=== PATIENT | male | born 2000 | race Caucasian/White ===

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

== ENCOUNTER 2020-02-24 12:36 | Emergency (ER) | payer BC, MEDICAID ==
[2020-02-24 13:10] VITALS: BP 80/34; PULSE 49
--- NOTE | 2020-02-24 13:34 | CR ---
Fingers Thumb Rt F5 CLINICAL HISTORY: Trauma FINDINGS: There is soft tissue disruption at the distal thumb. No underlying fracture is identified and there is no foreign body Impression: Soft tissue laceration No fracture
[2020-02-24] MEDS ORDERED: Bacitracin Oint 1 GM U/D Packet TOP ONE (13:41)
--- NOTE | 2020-02-24 13:43 | EDM.PDOC ---
ED HPI GENERAL MEDICAL PROBLEM - General Chief Complaint: Upper Extremity Injury/Pain Stated Complaint: smashed thumb on r hand Time Seen by Provider: 02/24/20 13:38 Source of Information: Reports: Patient, Family, RN Notes Reviewed History Limitations: Reports: No Limitations - History of Present Illness INITIAL COMMENTS - FREE TEXT/NARRATIVE: 19-year-old gentleman presents emergency department today after smashing his right thumb with a hammer he has no functional complaints end up getting just the distal aspect where the nail is - Related Data Allergies Allergy/AdvReac Type Severity Reaction Status Date / Time amoxicillin Allergy Unknown Rash Verified 09/27/15 06:04 Penicillins Allergy Unknown Rash Verified 09/27/15 06:04 Sulfa (Sulfonamide Allergy Rash Verified 09/27/15 07:58 Antibiotics) vancomycin Allergy Rash Verified 08/17/17 04:01 Home Meds: Home Meds Albuterol [Proventil Neb Soln] 1 vial INH QID 02/18/14 [History] Azithromycin [Zithromax] 1 tab PO .MWF 02/18/14 [History] Budesonide [Pulmicort Flexhaler] 2 puff INH BID 02/18/14 [History] Dornase Magdi [Pulmozyme] 2.5 mg INH BID 02/18/14 [History] Pedi Multivit #64/Vit D3/Vit K [Choiceful Vitamins Chew Tablet] 2 tab PO DAILY 02/18/14 [History] Sodium Chloride for Inhalation [Hyper-Moilna] 4 ml PO BID 02/18/14 [History] Cholecalciferol (Vitamin D3) [Vitamin D3] 1,000 unit PO TID 09/23/15 [History] Lumacaftor/Ivacaftor [Orkambi 200 mg-125 mg Tablet] 1 tab PO BID 09/23/15 [History] polyethylene glycoL 3350 [Miralax] 1 tsp PO DAILY PRN 09/23/15 [History] Amylase/Lipase/Protease [Creon DR 24,000 Unit] 5 - 6 cap PO TID 09/27/15 [History] Ipratropium [Atrovent] 0.5 mg INH TID 09/27/15 [History] Past Medical History HEENT History: Reports: Cataract, Impaired Vision, Sinusitis Respiratory History: Reports: Asthma, Cystic Fibrosis, SOB Gastrointestinal History: Reports: Chronic Constipation, GERD - Past Surgical History HEENT Surgical History: Reports: Adenoidectomy, Cataract Surgery, Eye Surgery, Naso-Sinus Surgery, Polypectomy, Retinal, Tonsillectomy, Other (See Below) Other HEENT Surgeries/Procedures: left eye fishhook injury, nasal polyps removed Respiratory Surgical History: Reports: None GI Surgical History: Reports: Hernia, Inguinal Social & Family History - Tobacco Use Tobacco Use Status *Q: Never Tobacco User - Caffeine Use Caffeine Use: Reports: Soda - Recreational Drug Use Recreational Drug Use: No Review of Systems - Review of Systems Review Of Systems: See Below Musculoskeletal: Reports: Hand Pain Skin: Reports: Wound Neurological: Reports: No Symptoms ED EXAM, GENERAL - Physical Exam Exam: See Below Free Text/Narrative:: Examination of the thumb right hand the nail still is intact a portion of it has been pulled away from the cuticle and there is a portion of subungual tissue which has protruded out underneath the nail there is a large subungual hematoma present, radial pulses +2 full range of motion of all digits Exam Limited By: No Limitations General Appearance: Alert, WD/WN, No Apparent Distress ED TRAUMA EXTREMITY PROCEDURES - Laceration/Wound Repair Right Digit - 1st (Thumb) Lac/Wound Length In cm: 1 Appearance: Subcutaneous, Irregular Distal NVT: Neuro & Vascular Intact, No Tendon Injury Anesthetic Type: Digital Local Anesthesia - Lidocaine (Xylocaine): 1% with EPI Local Anesthetic Volume: 2cc Skin Prep: Saline Saline Irrigation (cc's): 150 Exploration/Debridement/Repair: Wound Explored, In a Bloodless Field, Explored to Base Closed With: Sutures Suture Size: 4-0 # of Sutures: 3 Suture Type: Prolene Drain Placement: No Tetanus Status Addressed: Yes Course - Vital Signs Last Recorded V/S: Last Vital Signs Temp 97.7 F 02/24/20 13:09 Pulse 49 L 02/24/20 13:09 Resp 16 02/24/20 13:09 BP 80/34 L 02/24/20 13:09 Pulse Ox 97 02/24/20 13:09 - Orders/Labs/Meds Meds: Medications Discontinued Medications Generic Name Dose Route Start Last Admin Trade Name Freq PRN Reason Stop Dose Admin Bacitracin 1 dose 02/24/20 13:41 02/24/20 13:55 Bacitracin Oint 1 Gm TOP 02/24/20 13:42 1 dose ONETIME ONE Administration Lidocaine HCl 5 ml 02/24/20 13:41 02/24/20 13:56 Xylocaine-Mpf 1% INJECT 02/24/20 13:42 5 ml ONETIME ONE Administration Departure - Departure Time of Disposition: 14:57 Disposition: Home, Self-Care 01 Condition: Fair Clinical Impression: Laceration of thumb, right Qualifiers: Encounter type: initial encounter Damage to nail status: with damage Foreign body presence: without foreign body Qualified Code(s): S61.111A - Laceration without foreign body of right thumb with damage to nail, initial encounter - Discharge Information Instructions: Sutured Wound Care, [id number] Referrals: Nasima Forrester PA [Primary Care Provider] - Forms: ED Department Discharge Additional Instructions: Suture removal in 10 days, follow wound care instruction sheet, return to the emergency department or follow-up with primary care for suture removal Sepsis Event Note (ED) - Evaluation Sepsis Screening Result: No Definite Risk - Focused Exam Vital Signs: Vital Signs Temp Pulse Resp BP Pulse Ox 02/24/20 13:09 97.7 F 49 L 16 80/34 L 97 - Assessment/Plan Plan: Assessment Acuity = acute Site and laterality = subungual hematoma distal laceration right thumb Etiology = secondary trauma Manifestations = none Location of injury = Home Lab values = x-ray reveals no fracture Plan Suture removal in 10 days follow wound care instruction sheet follow-up with primary care return to the emergency department for suture removal This note was dictated using [email or web address] voice recognition software please call with any questions on syntax or grammar.
== END 2020-02-24 15:13 | disposition home or self-care (01) ==
LOC: JP.ED 12:36
DX: S61.111A Laceration without foreign body of right thumb with damage to nail, initial encounter (principal); J45.909 Unspecified asthma, uncomplicated; Z88.1 Allergy status to other antibiotic agents; Z88.0 Allergy status to penicillin; Z88.2 Allergy status to sulfonamides; Z79.899 Other long term (current) drug therapy; W27.8XXA Contact with other nonpowered hand tool, initial encounter
CPT/HCPCS: 12001; 73140; 99283; J2001